=== PATIENT | male | born 2005 | race Caucasian/White ===

== ENCOUNTER 2024-03-15 10:21 | Emergency (ER) | payer MEDICAID ==
[~2024-03-15] VITALS: Ht 180.3 cm; Wt 105.0 kg
[2024-03-15 10:31] VITALS: O2SAT 98
[2024-03-15 11:19] LABS: BASOPHILS % 0.5 % (0.0-2.0); EOSINOPHILS % 1.7 % (0.0-5.0); HEMATOCRIT. 40.8 % (42.0-52.0); HEMOGLOBIN. 14.1 g/dL (14.0-18.0); LYMPHOCYTES % 34.6 % (20.0-50.0); MEAN CORPUSCULAR HEMOGLOBIN 29.6 pg (28.0-32.0); MEAN CORPUSCULAR HGB CONC 34.6 g/dL (31.0-37.0); MEAN CORPUSCULAR VOLUME 85.6 fL (80.0-94.0); MEAN PLATELET VOLUME 8.1 fl (7.4-10.4); MONOCYTES % 5.9 % (2.0-8.0); NEUTROPHILS % 57.3 % (40.0-76.0); PLATELET 322 x1000/uL (130-400); RED BLOOD CELL COUNT 4.76 mill/uL (4.7-6.1); RED CELL DISTRIBUTION WIDTH 13.2 % (11.6-14.6); WHITE BLOOD COUNT 9.2 x1000/uL (4.5-11.0)
[2024-03-15 11:23] LABS: CHLORIDE 105 mEq/L (98-107); POTASSIUM 3.6 mEq/L (3.5-5.1); SODIUM 137 mEq/L (136-145)
[2024-03-15 11:24] LABS: CALCIUM 9.8 mg/dL (8.7-10.4); CARBON DIOXIDE 25 mEq/L (21-32)
[2024-03-15] MEDS: MAGNESIUM/ALUMINUM HYDROXIDE/SIMETHICONE 30ML UDC PO STA (11:28)
[2024-03-15] MEDS: ONDANSETRON 4MG ODT PO STA (11:28)
[2024-03-15 11:29] LABS: CREATININE 0.8 mg/dL (0.6-1.3); GLUCOSE 95 mg/dL (70-105); UREA NITROGEN BLOOD 11 mg/dL (9-23)
[2024-03-15] MEDS: SODIUM CHLORIDE 0.9% 1,000 ML IV ONE (11:29)
[2024-03-15] MEDS: DICYCLOMINE 10 MG/5 ML ORAL SYR PO STA (11:29)
[2024-03-15 11:58] LABS: TROPONIN I HIGH SENSITIVITY < 4 ng/L (3.0-53)
[2024-03-15] MEDS ORDERED: OMEP20TA23 PO (12:46)
[2024-03-15 12:58] VITALS: BP 124/70; PULSE 82; RESP 15; TEMP 37.00296; O2SAT 100
== END 2024-03-15 12:59 | disposition home or self-care (01) ==
LOC: ER 11:00
DX: K21.9 Gastro-esophageal reflux disease without esophagitis (principal); R07.89 Other chest pain; F41.9 Anxiety disorder, unspecified; Z98.890 Other specified postprocedural states
CPT/HCPCS: 99285; 71045; 80048; 83880; 85025; 85379; 84484; 36415; 93005; Q0162; J7030

== ENCOUNTER 2024-05-03 21:59 | Emergency (ER) | payer MEDICAID ==
[~2024-05-03] VITALS: Ht 180.3 cm; Wt 126.0 kg
[~2024-05-03 21:59] MED LIST: OMEP20TA23 PO
[2024-05-03 22:02] VITALS: BP 152/110; PULSE 109; RESP 18; TEMP 98.6; O2SAT 100
[2024-05-04 00:06] LABS: CLARITY URINE CLEAR (CLEAR); COLOR URINE YELLOW (YELLOW); GLUCOSE URINE NEGATIVE (NEGATIVE); KETONES URINE NEGATIVE (NEGATIVE); LEUKOCYTE ESTERASE URINE NEGATIVE (NEGATIVE); NITRITE URINE NEGATIVE (NEGATIVE); OCCULT BLOOD URINE NEGATIVE (NEGATIVE); PROTEIN URINE NEGATIVE (NEGATIVE); SPECIFIC GRAVITY URINE 1.007 (1.005-1.030); UROBILINOGEN URINE 0.2 E.U./dL (0.2-1.0)
[2024-05-04 00:17] LABS: BASOPHILS % 0.3 % (0.0-2.0); EOSINOPHILS % 1.4 % (0.0-5.0); LYMPHOCYTES % 20.9 % (20.0-50.0); MEAN CORPUSCULAR HEMOGLOBIN 29.9 pg (28.0-32.0); MEAN CORPUSCULAR VOLUME 85.6 fL (80.0-94.0); MEAN PLATELET VOLUME 7.8 fl (7.4-10.4); MONOCYTES % 5.8 % (2.0-8.0); NEUTROPHILS % 71.6 % (40.0-76.0); PLATELET 301 x1000/uL (130-400); RED BLOOD CELL COUNT 4.68 mill/uL (4.7-6.1); RED CELL DISTRIBUTION WIDTH 12.8 % (11.6-14.6); WHITE BLOOD COUNT 11.4 x1000/uL (4.5-11.0)
[2024-05-04 00:24] LABS: CHLORIDE 103 mEq/L (98-107); POTASSIUM 3.4 mEq/L (3.5-5.1); SODIUM 138 mEq/L (136-145)
[2024-05-04 00:25] LABS: CALCIUM 10.1 mg/dL (8.7-10.4); CARBON DIOXIDE 28 mEq/L (21-32)
[2024-05-04 00:30] LABS: CREATININE 0.8 mg/dL (0.6-1.3)
[2024-05-04 00:32] LABS: ALANINE AMINOTRANSFERASE 55 IU/L (10-49); ALBUMIN 4.7 g/dL (3.2-4.8); ASPARTATE AMINOTRANSFERASE 30 IU/L (<34); BILIRUBIN DIRECT 0.1 mg/dL (<=3.0); BILIRUBIN TOTAL 0.3 mg/dL (0.1-1.0); PROTEIN TOTAL 8.1 g/dL (6.0-8.3)
[2024-05-04 00:37] LABS: PROTHROMBIN TIME 11.5 sec (9.6-11.0)
[2024-05-04 00:43] LABS: GLUCOSE 92 mg/dL (70-105); UREA NITROGEN BLOOD 12 mg/dL (9-23)
[2024-05-04 00:44] LABS: TROPONIN I HIGH SENSITIVITY < 4 ng/L (3.0-53)
== END 2024-05-04 02:37 | disposition left against medical advice (07) ==
LOC: ER 21:59
DX: R07.89 Other chest pain (principal); Z53.21 Procedure and treatment not carried out due to patient leaving prior to being seen by health care provider
CPT/HCPCS: 36415; 71045; 80048; 80076; 81003; 84484; 85025; 93005